=== PATIENT | female | born 1945 | race Two or more races ===

== ENCOUNTER 2018-08-02 07:44 | Outpatient (CLI) | payer OTHER | END 2018-08-02 08:30 | disposition home or self-care (01) | LOC: NUCLEAR 07:44 | DX: E05.90 Thyrotoxicosis, unspecified without thyrotoxic crisis or storm (principal) | CPT/HCPCS: 78012; A9531 ==

== ENCOUNTER 2018-08-03 09:09 | Outpatient (CLI) | payer OTHER | END 2018-08-03 15:34 | disposition home or self-care (01) | LOC: NUCLEAR 09:09 | DX: E05.90 Thyrotoxicosis, unspecified without thyrotoxic crisis or storm (principal) | CPT/HCPCS: 78013; A9512 ==

== ENCOUNTER 2018-08-05 10:27 | Outpatient (CLI) | payer OTHER | END 2018-08-05 10:33 | disposition home or self-care (01) | LOC: SONOGRAMA 10:27 → MAMO-SONO 15:15 | DX: E04.1 Nontoxic single thyroid nodule (principal); E03.8 Other specified hypothyroidism ==

== ENCOUNTER 2018-08-16 07:38 | Outpatient (CLI) | payer OTHER | END 2018-08-16 07:40 | disposition home or self-care (01) | LOC: SONOGRAMA 07:38 | DX: E04.2 Nontoxic multinodular goiter (principal) ==